=== PATIENT | female | born 1935 | race Caucasian/White ===

== ENCOUNTER → 2018-03-24 | Day surgery (SDC) | payer MEDICARE ==
[~2018-03-24] MED LIST: ATROPINE 1 MG/10 ML SYRINGE IV; CEFAZOLIN 1 GM INJ; DIPHENHYDRAMINE 50 MG INJ IV; EPHEDrine SULFATE 50 MG/5 ML SYG IV; FAMOTIDINE 20 MG INJ; FENTAnyl 50 MCG/ML VIAL; FENTAnyl 50 MCG/ML VIAL IV; HYDROCODONE/APAP (5/325) TAB PO; HYDROmorphONE 1 MG/5 ML IV SYRINGE IV; LABETALOL HCL 20MG INJ IV; LIDOCAINE 2% (SDV) 5 ML INJ; NEOMYC/POLYMYX/BACIT 30 GM OINT; NITROGLYCERIN 2% 1 GM OINT PKT TD; ONDANSETRON 4 MG INJ; ONDANSETRON 4 MG INJ IV; PROPOFOL 20 ML; SEVOFLURANE 15 MIN; SOD CHLORIDE 0.9% 1,000 ML IV; hydrALAzine 20 MG INJ IV; morphine 2 MG INJ IV
[2018-03-24] MEDS: BUPIVACAINE LIPOSOME/PF 266 MG/20 ML VIAL INFIL (11:56)
[2018-03-24] MEDS: BUPIVACAINE 0.5%/EPI (SDV) 30 ML INJ (11:56)
[2018-03-24] MEDS: MEPERIDINE 25 MG INJ IV (13:25)
[2018-03-24] MEDS: ONDANSETRON 4 MG INJ IV (13:25)
[2018-03-24] MEDS: ACETAMINOPHEN 1000MG/100ML IV 100 ML IVPB (14:58)
[2018-03-24] MEDS: ALBUTEROL 0.083% (NEB) 2.5 MG/3 ML AMP HHN (15:38)
== END | disposition home or self-care (01) ==
LOC: SDS 07:48
DX: D03.39 Melanoma in situ of other parts of face (principal); C76.0 Malignant neoplasm of head, face and neck; I10 Essential (primary) hypertension; E78.00 Pure hypercholesterolemia, unspecified; E11.9 Type 2 diabetes mellitus without complications; Z86.718 Personal history of other venous thrombosis and embolism
CPT/HCPCS: 14040; 71045; 82962; 88305; 93005; 93970; 94640; 94664